=== PATIENT | female | born 1955 | race Two or more races ===

== ENCOUNTER 2018-11-26 06:54 | Emergency (ER) | payer OTHER ==
[~2018-11-26] VITALS: Ht 152.4 cm; Wt 84.4 kg
[~2018-11-26 06:54] MED LIST: CIPRO500 MG PO; HYZAAR 100-251 EACH PO; HYZAAR 50-12.51 EACH PO; INTEGRA F CAPS1 EACH PO; NORVASC2.5 M1 PO; OMEPRAZOLE20 M1 PO; OMEPRAZOLE20 MG PO; PERCOCET 5-3251 EACH PO; PROBIOTIC & AC1 EACH PO; SYNTH PO
[2018-11-26] MEDS ORDERED: LEVOXYL50 MCG (07:29)
[2018-11-26] MEDS ORDERED: INTESTINEX680 M1 PO (14:37)
== END 2018-11-26 14:47 | disposition home or self-care (01) ==
LOC: ER 06:54
DX: K29.70 Gastritis, unspecified, without bleeding (principal); R10.13 Epigastric pain